=== PATIENT | male | born 1975 | race Caucasian/White ===

== ENCOUNTER 2018-09-01 00:35 | Emergency (ER) | payer MEDICARE, OTHER ==
[2018-09-01] MEDS: IBUPROFEN 600 MG TAB PO (01:38)
== END 2018-09-01 03:06 | disposition home or self-care (01) ==
LOC: FTE 00:35
DX: M79.604 Pain in right leg (principal); F17.210 Nicotine dependence, cigarettes, uncomplicated
CPT/HCPCS: 29505; 73562; 73610-RT; 99283-25